=== PATIENT | male | born 1975 | race Two or more races ===

== ENCOUNTER 2019-08-27 07:09 | Outpatient (CLI) | payer OTHER | END 2019-08-27 07:27 | disposition home or self-care (01) | LOC: NUCLEAR 07:09 | DX: I20.9 Angina pectoris, unspecified (principal) | CPT/HCPCS: 78452; 93017; A9500 ==

== ENCOUNTER 2019-09-24 10:01 | Outpatient (CLI) | payer OTHER | END 2019-09-24 11:00 | disposition home or self-care (01) | LOC: NUCLEAR 10:01 | DX: I47.2 Ventricular tachycardia (principal) ==

== ENCOUNTER 2019-12-29 08:08 | Outpatient (CLI) | payer OTHER | END 2019-12-29 09:55 | disposition home or self-care (01) | LOC: NUCLEAR 08:08 | DX: R00.2 Palpitations (principal) ==

== ENCOUNTER 2021-01-16 10:07 | Outpatient (CLI) | payer OTHER | END 2021-01-16 10:08 | disposition home or self-care (01) | LOC: NUCLEAR 10:07 | PROVIDERS: ATTEND Internal Medicine | DX: R00.2 Palpitations (principal) ==